=== PATIENT | male | born 1995 | race Caucasian/White ===

== ENCOUNTER → 2021-11-05 07:22 | Outpatient (CLI) | payer MEDICAID, SELFPAY ==
[2021-11-05 18:49] LABS: Alanine Aminotransferase 14 U/L (12-78); Albumin Level 4.1 g/dl (3.5-5.0); Albumin/Globulin Ratio 1.6 (1.1-1.8); Alkaline Phosphatase 139 U/L (38-126); Anion Gap 13.8 mEq/L (5-15); Aspartate Amino Transferase 24 U/L (17-59); Blood Urea Nitrogen 10 mg/dl (9-20); Calcium 9.1 mg/dl (8.4-10.2); Carbon Dioxide 26 mmol/L (22.0-30.0); Chloride 101 mmol/L (98-107); Estimated Glomerular Filt Rate 204 ml/min (>60); GFR (African American) 247 ML/MIN (>60); Globulin 2.5 g/dL (1.3-3.2); Glucose 205 mg/dl (74-100); Potassium 4.8 mmoL/L (3.5-5.1); Sodium 136 mmol/L (136-145); Total Protein,Serum 6.6 g/dl (6.3-8.2)
[2021-11-05 18:59] LABS: Bilirubin,Total < 0.1 mg/dl (0.2-1.3)
[2021-11-05 19:30] LABS: Hemoglobin A1C 7.3 % (4.0-6.0)
== END ==
PROVIDERS: PCP Family Medicine; Visit Provider Family Medicine
DX: E11.10 Type 2 diabetes mellitus with ketoacidosis without coma (principal); Z79.4 Long term (current) use of insulin
CPT/HCPCS: 80053; 83036